=== PATIENT | female | born 1995 | race Caucasian/White ===

== ENCOUNTER 2020-09-26 22:33 | Outpatient (CLI) | payer OTHER ==
[2020-09-27 01:32] LABS: HEMOGLOBIN 11.1 gm/dl (12.3-15.3)
== END 2020-09-27 02:01 | disposition home or self-care (01) ==
LOC: GENOP 22:33
PROVIDERS: Obstetrics & Gynecology
DX: O99.891 Other specified diseases and conditions complicating pregnancy (principal); H53.8 Other visual disturbances; R51.9 Headache, unspecified; R10.9 Unspecified abdominal pain; Z3A.21 21 weeks gestation of pregnancy
CPT/HCPCS: 36415; 80307; 81001; 82962; 85014; 85018; G0463

== ENCOUNTER 2021-01-02 19:23 | Outpatient (CLI) | payer OTHER | END 2021-01-02 20:52 | disposition home or self-care (01) | LOC: GENOP 19:23 | DX: O99.891 Other specified diseases and conditions complicating pregnancy (principal); M54.50 Low back pain, unspecified; Z3A.35 35 weeks gestation of pregnancy; M25.552 Pain in left hip; M25.562 Pain in left knee; O36.8130 Decreased fetal movements, third trimester, not applicable or unspecified | CPT/HCPCS: G0463 ==

== ENCOUNTER 2021-01-14 14:23 | Outpatient (CLI) | payer OTHER | END 2021-01-14 18:09 | disposition home or self-care (01) | LOC: GENOP 14:23 | DX: O36.8130 Decreased fetal movements, third trimester, not applicable or unspecified (principal); Z3A.37 37 weeks gestation of pregnancy; O99.333 Smoking (tobacco) complicating pregnancy, third trimester; O23.43 Unspecified infection of urinary tract in pregnancy, third trimester; N39.0 Urinary tract infection, site not specified; O99.353 Diseases of the nervous system complicating pregnancy, third trimester; G40.909 Epilepsy, unspecified, not intractable, without status epilepticus; O99.891 Other specified diseases and conditions complicating pregnancy; N89.8 Other specified noninflammatory disorders of vagina; F17.200 Nicotine dependence, unspecified, uncomplicated | CPT/HCPCS: 59025; 81001; 83518 ==

== ENCOUNTER 2021-01-21 16:50 | Inpatient (IN) | payer OTHER ==
[2021-01-21 20:47] LABS: HEMOGLOBIN 11.4 gm/dl (12.3-15.3); RED BLOOD COUNT 3.54 M/UL (4.00-5.10)
[2021-01-22] MEDS ORDERED: FEROSUL325 MG PO (05:53)
[2021-01-22] MEDS ORDERED: IBUPROFEN600 MG PO (05:53)
[2021-01-22] MEDS ORDERED: DOCUSATE SODIU250 MG PO (05:53)
[2021-01-23 05:48] LABS: HEMOGLOBIN 10.2 gm/dl (12.3-15.3)
== END 2021-01-23 12:21 | disposition home or self-care (01) | DRG 807 ==
LOC: GENOP 16:50 → OB 18:31
PROVIDERS: ADMIT Obstetrics & Gynecology
PROC: 10E0XZZ Delivery of Products of Conception, External Approach (ICD-10-PCS; principal; 2021-01-22)
PROC: 4A1HXCZ Monitoring of Products of Conception, Cardiac Rate, External Approach (ICD-10-PCS; 2021-01-22)
DX: O69.81X0 Labor and delivery complicated by cord around neck, without compression, not applicable or unspecified (principal); O99.334 Smoking (tobacco) complicating childbirth; F17.210 Nicotine dependence, cigarettes, uncomplicated; Z20.822 Contact with and (suspected) exposure to COVID-19; Z37.0 Single live birth; Z3A.38 38 weeks gestation of pregnancy
CPT/HCPCS: 36415; 51702; 59025; 81001; 85014; 85018; 85025; 96360; 96361; C9113; J0595; J0690; J2405; J2590; J7120; U0002

== ENCOUNTER 2021-03-30 00:34 | Emergency (ER) | payer OTHER ==
[~2021-03-30 00:34] MED LIST: DOCUSATE SODIU250 MG PO; FEROSUL325 MG PO; IBUPROFEN600 MG PO
== END 2021-03-30 08:00 | disposition left against medical advice (07) ==
LOC: ER1 00:34
DX: Z53.21 Procedure and treatment not carried out due to patient leaving prior to being seen by health care provider (principal)

== ENCOUNTER 2021-08-12 22:34 | Emergency (ER) | payer OTHER ==
[2021-08-13 04:05] LABS: HEMOGLOBIN 13.1 gm/dl (12.3-15.3); RED BLOOD COUNT 4.2 M/UL (4.00-5.10); WHITE BLOOD COUNT 11.5 K/UL (4.5-11.0)
[2021-08-13 04:20] LABS: BUN/CREATININE RATIO 15 (0-10)
== END 2021-08-13 | disposition left against medical advice (07) ==
LOC: ER1 22:34
PROVIDERS: Physician Assistant
DX: N93.9 Abnormal uterine and vaginal bleeding, unspecified (principal); F17.210 Nicotine dependence, cigarettes, uncomplicated
CPT/HCPCS: 80053; 81001; 84703; 85025; 99283

== ENCOUNTER 2021-11-02 21:31 | Emergency (ER) | payer OTHER ==
[2021-11-03] MEDS ORDERED: HYDROCODON-ACE1 EAC4 PO (02:54)
== END 2021-11-03 03:29 | disposition home or self-care (01) ==
LOC: ER1 21:31
DX: S93.402A Sprain of unspecified ligament of left ankle, initial encounter (principal); S80.811A Abrasion, right lower leg, initial encounter; S30.811A Abrasion of abdominal wall, initial encounter; F17.210 Nicotine dependence, cigarettes, uncomplicated; V86.99XA Unspecified occupant of other special all-terrain or other off-road motor vehicle injured in nontraffic accident, initial encounter
CPT/HCPCS: 73610; 73630; 99283